=== PATIENT | male | born 1985 | race Caucasian/White ===

== ENCOUNTER 2022-06-24 15:23 | Emergency (ER) | payer BC ==
[~2022-06-24] VITALS: Ht 203.2 cm; Wt 111.1 kg
--- NOTE | 2022-06-24 16:00 | NUR ---
Pt arrived with c/o head/temporal ache vs hockey puck. Seen by Dr. Dominguez for MSE.
--- NOTE | 2022-06-24 17:23 | NUR ---
Patient discharged to home in stable condition. Written and verbal after care instructions given. Patient verbalizes understanding of instructions. Stressed follow up or return to ER for worsening s/s.
== END 2022-06-24 17:24 | disposition home or self-care (01) ==
LOC: ER 15:23
DX: S09.90XA Unspecified injury of head, initial encounter (principal); W21.220A Struck by ice hockey puck, initial encounter; Y92.89 Other specified places as the place of occurrence of the external cause; R55 Syncope and collapse; R51.9 Headache, unspecified; R03.0 Elevated blood-pressure reading, without diagnosis of hypertension; Z88.1 Allergy status to other antibiotic agents; Z88.2 Allergy status to sulfonamides
CPT/HCPCS: 70450; 93005; A4663

== ENCOUNTER 2025-01-16 22:28 | Emergency (ER) | payer BC ==
[~2025-01-16] VITALS: Ht 203.2 cm; Wt 108.9 kg
[2025-01-16 22:28] VITALS: BP 114/68
[2025-01-16] MEDS ORDERED: ONDA4TAB11 PO (22:53)
[2025-01-16] MEDS ORDERED: HYDR-4209 PO (22:53)
[2025-01-16 23:22] VITALS: BP 114/68; O2SAT 97
== END 2025-01-16 23:22 | disposition home or self-care (01) ==
LOC: ER 22:35
DX: S62.634A Displaced fracture of distal phalanx of right ring finger, initial encounter for closed fracture (principal); Z88.1 Allergy status to other antibiotic agents; Z88.2 Allergy status to sulfonamides; W22.8XXA Striking against or struck by other objects, initial encounter; Y93.65 Activity, lacrosse and field hockey; Y92.89 Other specified places as the place of occurrence of the external cause; Y99.8 Other external cause status
CPT/HCPCS: 73140; A4606; A4663